=== PATIENT | male | born 1965 | race Caucasian/White ===

== ENCOUNTER 2019-08-22 18:01 | Emergency (ER) | payer OTHER, SELFPAY ==
[2019-08-22 18:06] VITALS: BP 140/83; PULSE 71; RESP 16; TEMP 36.9; O2SAT 96
--- NOTE | 2019-08-22 18:19 | ED.GENADULT ---
HPI - General Adult General Chief complaint: Upper Respiratory Infection Stated complaint: headache/stiffness/dizziness/tired Time Seen by Provider: 08/22/19 18:19 Source: patient Mode of arrival: ambulatory Limitations: no limitations History of Present Illness HPI narrative: 53-year-old male patient presents to [facility] with complaints of feeling tired for the past couple of weeks off and on. Patient states that 1 of his coworkers was recently diagnosed with mono. Patient states that he is concerned he might have mono. Denies any fevers. Denies any sore throat. Patient states he has been feeling stiff lately and has had headaches off and on. Patient states that time he does feel like he is having palpitations after he eats. Patient denies any runny nose, stuffy nose, ear pain, coughing, chest pain, shortness of breath. Patient denies any abdominal pain, nausea, vomiting or diarrhea. Patient states that he did get a flu shot this year. Patient requesting to be tested for mono today. Related Data Home Medications Medication Instructions Recorded Confirmed atorvastatin 08/22/19 Allergies Allergy/AdvReac Type Severity Reaction Status Date / Time No Known Allergies Allergy Verified 08/22/19 18:10 Review of Systems Review of Systems: Narrative: CONSTITUTIONAL: Denies fever, chills, or sweats. EYES: Denies visual changes, redness, or discharge. ENT: Denies rhinorrhea, congestion, sore throat, or otalgia. CARDIOVASCULAR: Denies chest pain, positive palpitations off and on, denies edema. RESPIRATORY: Denies cough or dyspnea. GASTROINTESTINAL: Denies abdominal pain, nausea, vomiting, or diarrhea. GENITOURINARY: Denies dysuria or hematuria. SKIN: Denies rash or itching. MUSCULOSKELETAL: Denies back pain, positive joint pain off and on, or myalgia. NEUROLOGIC: Positive off and on headache, denies numbness, or weakness. Positive lethargy at times. PSYCHIATRIC: Denies anxiety or depression. [facility] Past Medical History Medical History (Updated 08/22/19 @ 18:43 by EMMANUEL Johnson) CVA (cerebral vascular accident) Family History Family History Mother Family history of diabetes mellitus in first degree relative Social History Social History (Reviewed 08/22/19 @ 18:19 by JONATHON Johnson Alcohol intake: current Comments At the time of my signature I agree with nursing past medical history, surgical, social, and family history. There is no relevant family history pertinent to the presenting complaint. Exam Narrative: Exam Narrative: GENERAL: Well-appearing, well-nourished, and in no acute distress. HEAD: Normocephalic, atraumatic. No tenderness noted to frontal maxillary sinuses on palpation. EYES: PERRLA and EOMI. ENT: Nares clear, no rhinorrhea or epistaxis. Mucous membranes moist. Posterior pharynx with no erythema, tonsillar margin, exudates or lesions present. Bilateral TMs are clear with no erythema or foreign bodies in the canal. NECK: Supple. No lymphadenopathy CHEST: Clear to auscultation. No respiratory distress. HEART: Regular rate and rhythm. No murmur heard. Normal peripheral pulses. ABDOMEN: Soft, nontender, nondistended, normal active bowel sounds. EXTREMITIES: Normal range of motion. No edema. SKIN: Warm, dry, no rash. NEURO: No focal deficits. Alert and oriented x3. Course Reevaluation(s) Reevaluation #1: Notified patient that he is negative today for mono. Discussed with him that his EKG is also normal. Discussed with him that I do not see any evidence of an infection to the ears, throat and his lungs sound nice and clear. Discussed with patient that I would highly encourage him to follow-up with his primary doctor in regards to feeling the tiredness and joint pain. Discussed with him that his blood pressure is slightly elevated today when he came in which could be also causing some of his symptoms but again I would enco
--- NOTE | 2019-08-22 18:23 | ECG_ITS ---
Measurements Intervals [place] Rate: 67 P: 53 ME: 140 QRS: 12 QRSD: 93 T: 50 QT: 393 QTc: 416 Interpretive Statements SINUS RHYTHM NORMAL ECG Electronically Signed On 08-24-2019 13:20:56 [employer]ATIONAL [employer]UD[employer] by Terrence Jung D.O.
== END 2019-08-22 18:49 | disposition home or self-care (01) ==
PROVIDERS: Emergency Provider Nurse Practitioner Family; PCP Urology
DX: Z20.828 Contact with and (suspected) exposure to other viral communicable diseases (principal); Z86.73 Personal history of transient ischemic attack (TIA), and cerebral infarction without residual deficits
CPT/HCPCS: 93005; 99201; G0463

== ENCOUNTER 2024-11-30 09:04 | Emergency (ER) | payer OTHER, SELFPAY ==
[2024-11-30 09:17] VITALS: BP 131/86; PULSE 60; RESP 16; TEMP 36.6; O2SAT 98
--- NOTE | 2024-11-30 09:22 | ED_ITS ---
HPI - General Adult General Chief complaint: Animal Bite Stated complaint: TICK BITE & SPIDER BITE Time Seen by Provider: 11/30/24 09:05 Source: patient Mode of arrival: ambulatory Limitations: no limitations History of Present Illness HPI narrative: Patient is a 58-year-old male who presents with tick bite on his right buttocks is now red, swollen and itchy. Patient removed tick to days ago. Patient also reports another unknown insect bite to left groin that is also red and swollen and itchy. Denies any pain or drainage from sites. Denies any fever, chills, nausea, vomiting, diarrhea, muscle aches. Related Data Home Medications ?Medication ?Instructions ?Recorded ?Confirmed ?Last Taken ?Type atorvastatin 20 mg tablet 20 mg PO QPM 08/22/19 11/30/24 Unknown History Fish Oil BYMOUTH BID 11/30/24 Unknown History aspirin 81 mg tablet,delayed 81 mg PO DAILY 11/30/24 11/30/24 Unknown History release (Adult Aspirin Regimen) multivitamin (Daily Multi-Vitamin 1 tablet PO DAILY 11/30/24 11/30/24 Unknown History tablet) omeprazole 20 mg tablet,delayed 20 mg PO DAILY 11/30/24 11/30/24 Unknown History release Allergies Allergy/AdvReac Type Severity Reaction Status Date / Time naproxen Allergy Mild rash Verified 11/30/24 09:12 Review of Systems 2 Review of Systems: All systems reviewed & are unremarkable except as noted in HPI and below Constitutional: Constitutional: Denies body ache(s), Denies chills, Denies fatigue, Denies fever(s), Denies headache(s), Denies malaise and Denies weakness Eyes: Eyes: Denies blurry vision, Denies irritation and Denies loss of vision ENT: Denies otalgia, Denies headache(s), Denies nasal discharge, Denies sinus pain and Denies sore throat Cardiovascular: Cardiovascular: Denies chest pain, Denies irregular heart rhythm and Denies dyspnea Respiratory: Respiratory: Denies dyspnea Gastrointestinal: Gastrointestinal: Denies abdominal pain, Denies melena, Denies hematochezia, Denies diarrhea, Denies nausea and Denies vomiting Musculoskeletal: Musculoskeletal: Denies back pain, Denies myalgias and Denies arthralgias Integumentary/Breasts: Skin/Breast: Denies pruritus, Reports erythema, Denies rash, Reports skin pain and Reports skin swelling Neurologic: Denies headache(s), Denies loss of vision and Denies weakness Psychiatric: Psychiatric: Reports no additional psychiatric complaints Endocrine: Endocrine: Denies fatigue PMFSH Past Medical History Medical History CVA (cerebral vascular accident) Family History Family History Mother Family history of diabetes mellitus in first degree relative Social History Social History Alcohol intake: current Comments At time of signature, agree with nursing past medical, surgical, social and family history. There is no relevant family history pertinent to the presenting complaint. Exam 2 Const: General: cooperative, healthy appearing, comfortable, no acute distress and well nourished Nutritional Appearance: well nourished O rientation/consciousness: patient oriented x3 Limitations: no limitations HENMT: Head: normal to inspection, normocephalic and atraumatic Ears: h earing grossly normal bilaterally and external ears normal Face/Nose/Sinus: N ormal external nose present, normal facial exam and face symmetric Face and sinus: normal facial exam and face symmetric Mouth: Yes lip normal Eyes: General: appearance normal, both eyes and all related structures A lignment and Position: alignment normal and position normal Periorbital: p eriorbital findings normal Eyelids: eyelids normal Pupils: Equal, round and reactive pupils present EOM: EOMs intact bilaterally Neck: Neck: normal visual inspection, full ROM and supple Chest: Chest palpation & inspection: normal inspection of the chest Resp: Effort & Inspection: normal respiratory effort and able to speak in complete sentences Auscultation: clear to auscultation bilaterally Cardio: Rate: regular rate Rhythm: regular rhythm Heart sounds: S1 normal heart sound present and S2 normal heart sound present GI: Inspection: normal to inspection Skin: General skin exam: normal color and no rashes or lesions noted Full body images: 1. Known tick bite location. Erythema and induration noted. 1.5 cm circular area. No bull's-eye presentation 2. Unknown insect bite location. Erythem a and induration noted. 1 cm circular area. No bull's-eye presentation Neuro: General: patient oriented x3 and moves all extremities Cranial nerves: Yes Equal, round and reactive pupils present Speech: normal speech Gait exam (Neuro): Normal gait present Extrem: General: normal to inspection, full ROM and no edema Psych: Appearance: grossly normal and well kempt Mental Status: mental status grossly normal Speech and movement: Normal speech and movement present Affect: normal affect Attitude: cooperative Thought process: Normal thought process present Course Course Emergency Course: Patient is aware of diagnosis, understands and agrees to treatment plan. Anticipatory guidance given. Patient agrees to follow-up as directed and is aware of reasons to seek care at the emergency department. Portions of this record may have been created with voice recognition software Level of Care: Express Care Visit Vital Signs Vital signs: Vital Signs Temperature 36.6 C 11/30/24 09:17 Pulse Rate 60 11/30/24 09:17 Respiratory Rate 16 11/30/24 09:17 Blood Pressure 131/86 11/30/24 09:17 Pulse Oximetry 98 11/30/24 09:17 Temperature 36.6 C 11/30/24 09:17 Pulse Rate 60 11/30/24 09:17 Respiratory Rate 16 11/30/24 09:17 Blood Pressure 131/86 11/30/24 09:17 Pulse Oximetry 98 11/30/24 09:17 Reviewed Medical Decision Making MDM Narrative Medical decision making narrative: Pt well hydrated appearing, in no respiratory distress, hemodynamically stable. Recommend supportive care. The patient is stable at time of discharge the clinical impression was discussed and the patient was given the opportunity to ask questions, which were addressed as completely as possible given the information available at present. Anticipatory guidance and return to care precautions were discussed and the importance of primary care follow-up was stressed and encouraged. The patient voiced understanding of the plan, indications to return, and the need for follow-up. Exam findings show no acute concerns or changes Patient is appropriate for outpatient treatment and follow-up. Differential Diagnosis Differential Diagnosis: Tick bite, cellulitis, less likely Lyme disease Medical Records Medical records reviewed: Yes I reviewed the external patient's medical records. Vital Signs Vital Signs: Vital Signs Temperature 36.6 C 11/30/24 09:17 Pulse Rate 60 11/30/24 09:17 Respiratory Rate 16 11/30/24 09:17 Blood Pressure 131/86 11/30/24 09:17 Pulse Oximetry 98 11/30/24 09:17 Temperature 36.6 C 11/30/24 09:17 Pulse Rate 60 11/30/24 09:17 Respiratory Rate 16 11/30/24 09:17 Blood Pressure 131/86 11/30/24 09:17 Pulse Oximetry 98 11/30/24 09:17 Reviewed Discharge Plan Discharge Clinical Impression: Tick bite Patient Disposition: Home Condition: Stable Instructions: Tick Bite (ED) Additional Instructions: Ticks should be removed promptly with tweezers (fine-tipped forceps). Prevention is [place]. If you are in the wooded area, tall grass, or brush: -Wear long pants and long sleeves. -Wear socks over the outside of pant legs. -Tuck shirts into pants. -Wear light-colored clothes so that ticks can easily be spotted. -[place] clothes and exposed skin with insect repellant. -Frequently check clothes and skin for ticks Avoid scratching the affected area, clean with soap and water only. Watch for sign of skin infection include but not limited to redness, swollen, severe pain or fever to seek evaluation. Please schedule a followup visit with your personal physician for further evaluation and treatment or If your symptoms persist, change or worsen significantly before you can contact your personal physician then please, without delay, go to the emergency department for further evaluation Patient Language: Lao Prescriptions: New doxycycline monohydrate 100 mg tablet 100 mg PO BID 7 Days Qty: 14 0RF mupirocin 2 % ointment 1 applic topical BID Qty: 15 0RF No Action atorvastatin 20 mg tablet 20 mg PO QPM omeprazole 20 mg tablet,delayed release (DR/EC) 20 mg PO DAILY aspirin [Adult Aspirin Regimen] 81 mg tablet,delayed release (DR/EC) 81 mg PO DAILY Fish Oil BYMOUTH BID multivitamin [Daily Multi-Vitamin] Tablet 1 tablet PO DAILY Follow-up/Referrals: Yuval,Sonya [Other] - 3 Days Time of Disposition: 09:45
== END 2024-11-30 09:47 | disposition home or self-care (01) ==
PROVIDERS: Emergency Provider Nurse Practitioner Family
DX: S30.860A Insect bite (nonvenomous) of lower back and pelvis, initial encounter (principal); S30.861A Insect bite (nonvenomous) of abdominal wall, initial encounter; W57.XXXA Bitten or stung by nonvenomous insect and other nonvenomous arthropods, initial encounter; Z86.73 Personal history of transient ischemic attack (TIA), and cerebral infarction without residual deficits
CPT/HCPCS: 99213; G0463